=== PATIENT | female | born 1990 | race Caucasian/White ===

== ENCOUNTER 2024-08-03 08:15 | Outpatient (RCR) | payer OTHER, SELFPAY | END 2024-12-01 23:59 | disposition home or self-care (01) | PROVIDERS: Visit Provider Registered Nurse Home Health | DX: S63.501D Unspecified sprain of right wrist, subsequent encounter (principal); R53.1 Weakness; M25.631 Stiffness of right wrist, not elsewhere classified; Z51.89 Encounter for other specified aftercare | CPT/HCPCS: 97035; 97110; 97140; 97165; X5282 ==